=== PATIENT | female | born 1945 | race Caucasian/White ===

== ENCOUNTER 2022-02-17 09:21 | Emergency (ER) | payer OTHER ==
[2022-02-17 09:32] VITALS: BP 148/93
--- NOTE | 2022-02-17 10:07 | ED Physician Documentation ---
PD HPI LOWER EXT INJURY - Stated complaint Stated Complaint: RT LEG INJ - Chief complaint Chief Complaint: Trauma Ext - History obtained from History obtained from: Patient - History of Present Illness PD HPI LOW EXT INJURY LOCATION: Right, Hip, Buttock Type of injury: Fall (she slid on wet surface and foot extended out, with pain in gluteal/hip area. She says she felt a pop. Has pain in gluteal/buttock area with walking.) Where injury occurred: Home Timing - onset: Last night Timing - details: Abrupt onset, Still present Worsened by: Moving Associated symptoms: No: Weakness, Numbness, Swelling Contributing factors: No: Prior ortho surgery Similar symptoms before: Has not had sx before Recently seen: Not recently seen Review of Systems Constitutional: denies: Fever, Chills Cardiac: reports: Palpitations. denies: Chest pain / pressure Respiratory: reports: Cough. denies: Dyspnea GI: denies: Abdominal Pain Neurologic: denies: Focal weakness, Numbness Endocrine: denies: Easy bruising / bleeding PD PAST MEDICAL HISTORY - Past Medical History Cardiovascular: None Respiratory: None - Allergies Allergies/Adverse Reactions: Allergies Allergy/AdvReac Type Severity Reaction Status Date / Time Iodinated Contrast Media Allergy Itching Verified 02/17/22 09:33 Penicillins Allergy Itching Verified 02/17/22 09:33 - Living Situation Living Situation: reports: With spouse/s.o. Living Arrangement: reports: At home PD ED PE NORMAL - Vitals Vital signs reviewed: Yes - General General: Alert and oriented X 3, Well developed/nourished, Other (anxious about the injury. ) - Back Back: No CVA TTP, No spinal TTP - Derm Derm: Normal color, Warm and dry - Extremities Extremities: No edema, No calf tenderness / cord, Other (passive ROM of the hip does not hurt. No pain with impaction nor distraction nor rotation. Tender in upper posterior thigh at ischial ramus. No noted focal swelling/firmness. Hamstrings tendonds lower are nontender there but palpation of lateral hamstring does cause some pain in gluteal area. ) - Neuro Neuro: Alert and oriented X 3, No motor deficit, No sensory deficit, Normal speech Results - Vitals Vitals: Oxygen O2 Source Room air - Rads (name of study) right hip xray Radiology: Prelim report reviewed (no fractures.), See rad report PD MEDICAL DECISION MAKING - ED course Complexity details: considered differential (seems like gluteal/hamstring strain. Not suspicious for fracture. Am satisfied with normal xray. ), d/w patient, d/w family (spouse) Departure - Departure Disposition: 01 Home, Self Care Clinical Impression: Muscle strain of right gluteal region Qualifiers: Encounter type: initial encounter Qualified Code(s): S76.011A - Strain of muscle, fascia and tendon of right hip, initial encounter Condition: Stable Record reviewed to determine appropriate education?: Yes Instructions: ED Strain Muscle Ext Comments: I presume you have a strain of one of the upper parts of the hamstring or the gluteal muscle. There may be a small partial tear of some muscle bundle. I do not feel a disruption of the muscle architecture enough to this think a larger muscle tear. I do not feel hematoma. The movement and function around the hip and leg seem good. I believe this can be treated conservatively with less activity based on comfort and use of Tylenol 4 times daily regularly for the next week or so. Continue your other usual medicines. Ice today and may be tomorrow and then start with heat to reduce spasming. I would anticipate improvement over several days to week and resolution by 2 to 3 weeks at most. Recheck if not improving in that timeframe. Your x-ray is good without any signs of bony abnormality around the hip and pelvis. Discharge Date/Time: 02/17/22 11:10
--- NOTE | 2022-02-17 10:51 | XRAY Report ---
PROCEDURE: Hip w/Pelvis 2-3V RT INDICATIONS: fall with hip pain TECHNIQUE: AP pelvis with lateral view(s) of the right hip(s). COMPARISON: None. FINDINGS: Bones: No fractures or dislocations. Pelvic ring appears intact. No suspicious bony lesions. Soft tissues: The visualized bowel gas pattern is normal. No suspicious soft tissue calcifications. IMPRESSION: No fracture demonstrated. If concern for occult fracture consider CT bony pelvis. Reviewed by: Carlos North MD on 02/17/2022 10:50 AM PDT Approved by: Carlos North MD on 02/17/2022 10:50 AM PDT Station ID: [id number]
== END 2022-02-17 11:10 | disposition home or self-care (01) ==
LOC: ED 09:21
DX: S76.011A Strain of muscle, fascia and tendon of right hip, initial encounter (principal); W01.0XXA Fall on same level from slipping, tripping and stumbling without subsequent striking against object, initial encounter; Y92.009 Unspecified place in unspecified non-institutional (private) residence as the place of occurrence of the external cause
CPT/HCPCS: 99282; 99283